=== PATIENT | female | born 1995 | race Caucasian/White ===

== ENCOUNTER 2019-03-04 19:02 | Emergency (ER) | payer OTHER, MEDICAID ==
[~2019-03-04] VITALS: Ht 165.1 cm; Wt 85.7 kg
[2019-03-04 20:45] LABS: BASOPHIL % 0.3 % (0-2); PLATELET COUNT 364 x10^3mcL (130-400); RED CELL DISTRIBUTION WIDTH 13.7 % (11.5-14.5)
[2019-03-04 21:02] LABS: CALCIUM 9.2 mg/dL (8.5-10.1); CARBON DIOXIDE 30.7 mmol/L (21-32); CHLORIDE SERUM 102 mmol/L (98-107); CREATININE SERUM 0.7 mg/dL (0.6-1.0); GFR1 > 60 mL/min; GLUCOSE SERUM 103 mg/dL (74-106); POTASSIUM SERUM 3.8 mmol/L (3.5-5.1); SODIUM SERUM 138 mmol/L (136-145)
[2019-03-04 21:03] LABS: ALBUMIN 3.8 g/dL (3.4-5.0); ALKALINE PHOSPHATASE 69 U/L (46-116); ALT/SGPT 19 U/L (14-59); AST/SGOT 11 U/L (15-37); BILIRUBIN TOTAL 0.7 mg/dL (0.20-1.00); LIPASE 100 IU/L (73-393); TOTAL PROTEIN, SERUM 7.4 g/dL (6.4-8.2)
[2019-03-05 00:19] LABS: microscopic required? YES; urine erythrocyte 1+ (NEGATIVE)
[2019-03-05 03:20] VITALS: BP 100/76
== END 2019-03-05 03:20 | disposition home or self-care (01) ==
LOC: ED 19:02
PROVIDERS: Emergency Medicine
DX: N39.0 Urinary tract infection, site not specified (principal); N28.89 Other specified disorders of kidney and ureter
CPT/HCPCS: J0696; J1885; J7060; Q9967